=== PATIENT | female | born 1985 | race Caucasian/White ===

== ENCOUNTER 2023-01-28 11:19 | Emergency (ER) | payer SELFPAY ==
[~2023-01-28] VITALS: Ht 162.6 cm; Wt 50.0 kg
[2023-01-28 11:27] VITALS: O2SAT 98
[2023-01-28] MEDS ORDERED: SODIUM CHLORIDE 0.9% 1,000 ML IV ONE ×2 (11:45→14:30)
[2023-01-28 13:03] LABS: BASOPHILS % 0.9 % (0.0-2.0); EOSINOPHILS % 4.4 % (0.0-5.0); HEMATOCRIT. 35.1 % (36.0-48.0); HEMOGLOBIN. 11.9 g/dL (12.0-16.0); LYMPHOCYTES % 56.5 % (20.0-50.0); MEAN CORPUSCULAR HEMOGLOBIN 29.6 pg (28.0-32.0); MEAN CORPUSCULAR HGB CONC 33.8 g/dL (31.0-37.0); MEAN CORPUSCULAR VOLUME 87.4 fL (81.0-99.0); MEAN PLATELET VOLUME 7.8 fl (7.4-10.4); MONOCYTES % 5.9 % (2.0-8.0); NEUTROPHILS % 32.3 % (40.0-76.0); PLATELET 500 x1000/uL (130-400); RED BLOOD CELL COUNT 4.02 mill/uL (4.2-5.4); RED CELL DISTRIBUTION WIDTH 15.6 % (11.6-14.6); WHITE BLOOD COUNT 4.9 x1000/uL (4.5-11.0)
[2023-01-28 13:17] LABS: CHLORIDE 102 mEq/L (98-107); INDEX HEMOLYSI 1 (1-3); INDEX ICTERIC 1 (1-4); INDEX LIPEMIC 1 (1-3); POTASSIUM 4.8 mEq/L (3.5-5.1); SODIUM 132 mEq/L (136-145)
[2023-01-28 13:19] LABS: HCG SCREEN NEGATIVE
[2023-01-28 13:25] LABS: ALANINE AMINOTRANSFERASE 23 IU/L (13-61); ALBUMIN 3.8 g/dL (3.4-5.0); ASPARTATE AMINOTRANSFERASE 24 IU/L (15-37); BILIRUBIN TOTAL 0.4 mg/dL (0.1-1.0); CARBON DIOXIDE 26 mEq/L (21-32); CREATININE 0.5 mg/dL (0.6-1.3); GLUCOSE 248 mg/dL (70-105); PROTEIN TOTAL 8.8 g/dL (6.0-8.3); UREA NITROGEN BLOOD 37 mg/dL (7-21)
[2023-01-28 18:05] LABS: CLARITY URINE CLOUDY (CLEAR); COLOR URINE YELLOW (YELLOW); GLUCOSE URINE 3+ (NEGATIVE); KETONES URINE NEGATIVE (NEGATIVE); LEUKOCYTE ESTERASE URINE TRACE (NEGATIVE); NITRITE URINE NEGATIVE (NEGATIVE); OCCULT BLOOD URINE NEGATIVE (NEGATIVE); PROTEIN URINE 1+ (NEGATIVE); SPECIFIC GRAVITY URINE 1.024 (1.005-1.030); UROBILINOGEN URINE 0.2 E.U./dL (0.2-1.0)
[2023-01-28 18:21] LABS: BACTERIA URINE 2+
[2023-01-28 18:22] LABS: CALCIUM OXALATE CRYSTALS URINE 1+ /lpf; RBC URINE 0-2 /hpf (0-2); SQUAMOUS EPITHELIAL CELL URINE 1+ /lpf (RARE/1+); YEAST URINE 1+
[2023-01-28] MEDS ORDERED: CEFTRIAXONE 1GM PREMIX 50 ML IV ONE (18:30)
[2023-01-28] MEDS ORDERED: CEFP200T13 MT (18:31)
[2023-01-28 21:10] VITALS: BP 114/79; PULSE 88; RESP 17; TEMP 97.3
== END 2023-01-28 21:13 | disposition home or self-care (01) ==
LOC: ER 11:19
DX: N39.0 Urinary tract infection, site not specified (principal); E86.0 Dehydration; E11.9 Type 2 diabetes mellitus without complications; F15.10 Other stimulant abuse, uncomplicated
CPT/HCPCS: 80053; 81003; 84703; 85025; 36415; 93005; 96361; 96365; 99284; J0696; J7030; Z7610 ×2; C1893